=== PATIENT | female | born 1995 | race Caucasian/White ===

== ENCOUNTER → 2017-11-09 | Outpatient (CLI) | payer BC | LOC: PLD 11:19 → LAB SHORT 11:19 | DX: D48.5 Neoplasm of uncertain behavior of skin (principal) | CPT/HCPCS: 88305 ==

== ENCOUNTER 2025-01-06 01:57 | Inpatient (IN) | payer OTHER ==
[~2025-01-06] VITALS: Ht 170.2 cm; Wt 109.9 kg
[2025-01-06] VITALS (16 sets, daily range): BP systolic 75–128; BP diastolic 33–74
[2025-01-06] MEDS ORDERED: OXYTOCIN/RINGER'S LACTATE 500 ML IV PRN (02:10)
[2025-01-06] MEDS ORDERED: Methylergonovine Maleate 0.2MG / ML 1ML Amp IM PRN (02:10)
[2025-01-06] MEDS ORDERED: Oxytocin 10 Unit / ML Vial IM PRN (02:10)
[2025-01-06] MEDS ORDERED: Carboprost Tromethamine 250 MCG/ML 1ML Amp IM PRN ×2 (02:10→04:45)
[2025-01-06] MEDS ORDERED: Ondansetron HCl 2 MG / ML 2ML Vial IV PRN ×3 (02:10→04:45)
[2025-01-06] MEDS ORDERED: CeFAZolin Sodium 2,000 MG in NS 100 ML IV SCH (02:15)
[2025-01-06 02:25] LABS: BASOPHILS ABSOLUTE AUTO 0.06 K/mm3 (0.00-0.23); BASOPHILS PERCENT AUTO 0 % (0-2); EOSINOPHILS ABSOLUTE AUTO 0.01 K/mm3 (0.00-0.68); EOSINOPHILS PERCENT AUTO 0 % (0-6); Hematocrit 42.8 % (33.0-51.0); Hemoglobin 14.4 g/dL (11.5-16.0); IMMATURE GRAN ABSOLUTE AUTO 0.43 K/mm3 (0.00-0.10); IMMATURE GRAN PERCENT AUTO 2 % (0-1); LYMPHOCYTES ABSOLUTE AUTO 0.85 K/mm3 (0.84-5.20); LYMPHOCYTES PERCENT AUTO 3 % (21-46); MONOCYTES ABSOLUTE AUTO 1.16 K/mm3 (0.16-1.47); MONOCYTES PERCENT AUTO 4 % (4-13); Mean Corpuscular HGB Conc 33.6 g/dL (31.5-36.5); Mean Corpuscular Volume 96 fL (80-100); NEUTROPHILS ABSOLUTE AUTO 25.72 K/mm3 (1.96-9.15); NEUTROPHILS PERCENT AUTO 91 % (41-73); NRBC ABSOLUTE 0.00 K/mm3 (0.00-0.02); NRBC Auto 0.0 /100 WBC (0.0-0.2); Platelet Count 230 K/mm3 (150-400); RDW Coefficient Variation 13.6 % (11.7-14.2); RDW Standard Deviation 48.2 fL (35.1-46.3)
[2025-01-06] MEDS ORDERED: Terbutaline Sulfate 1MG / ML 1 ML Amp ONE (02:29)
[2025-01-06] MEDS ORDERED: Tranexamic Acid 100 ML IV SCH (02:30)
[2025-01-06] MEDS ORDERED: GENTAMICIN SULFATE IV ONE (02:35)
[2025-01-06] MEDS ORDERED: NS IV ONE (02:35)
[2025-01-06] MEDS ORDERED: Ampicillin Sod 2,000 MG in NS 100 ML IV SCH ×2 (03:00→09:00)
[2025-01-06] MEDS ORDERED: Clindamycin 900mg in D5W 50ML 50 ML IV SCH (03:00)
[2025-01-06] MEDS ORDERED: Citric Acid/Sodium Citrate 30 ML BTL ONE (03:06)
[2025-01-06] MEDS ORDERED: Metoclopramide HCl 5MG / ML 2ML Vial ONE (03:06)
[2025-01-06] MEDS ORDERED: Metoclopramide HCl 5MG / ML 2ML Vial IV ONE ×2 (03:10→03:15)
[2025-01-06] MEDS ORDERED: Citric Acid/Sodium Citrate 30 ML BTL PO ONE ×2 (03:10→03:20)
[2025-01-06] MEDS ORDERED: ePHEDrine Sulfate 50 MG/ML 1ML Injection ONE (03:39)
[2025-01-06] MEDS ORDERED: Oxytocin 10 Unit / ML Vial ONE (03:47)
--- NOTE | 2025-01-06 04:04 | NUR ---
01/06/25 0404 Eilane Koehler GIVEN BY ANESTHESIA AT 0347
[2025-01-06 04:17] LABS: PCO2 Cord - Arterial 50.7 mmHg (40-50); PO2 Cord - Arterial < 14.0 mmHg (16-20); pH Cord - Arterial 7.17 (7.28-7.35)
[2025-01-06] MEDS ORDERED: Ketorolac Tromethamine 30mg Vial ONE (04:17)
[2025-01-06 04:18] LABS: PCO2 Cord - Venous 41.9 mmHg (40-50); pH Umbilical Cord - Venous 7.24 (7.26-7.35)
[2025-01-06 04:19] LABS: PO2 Cord - Venous 20.4 mmHg (28-32)
[2025-01-06] MEDS ORDERED: OXYTOCIN/RINGER'S LACTATE 500 ML IV SCH (04:35)
[2025-01-06] MEDS ORDERED: Magnesium Hydroxide Conc 10 ML UDC PO PRN (04:35)
[2025-01-06] MEDS ORDERED: FentaNYL Citrate 50 MCG/ML 2 ML Injection IV PRN ×3 (04:40→04:50)
[2025-01-06] MEDS ORDERED: Albuterol 2.5 MG/3 ML VIAL INH PRN (04:45)
[2025-01-06] MEDS ORDERED: HYDROmorphone HCl/Pf 1MG SYR IV PRN (04:45)
[2025-01-06] MEDS ORDERED: Prochlorperazine Edisylate 10 mg Vial IV PRN (04:50)
[2025-01-06] MEDS ORDERED: Dexamethasone Sodium Phosphate 4 MG/ML 5ML VIAL IV PRN (04:50)
[2025-01-06] MEDS ORDERED: Ketorolac Tromethamine 30mg Vial IV SCH (05:00)
[2025-01-06] MEDS ORDERED: PRENATAL TABLE1 EAC2 (05:24)
[2025-01-06] MEDS ORDERED: Prenatal Vit/FE Fumarate/FA 1 Tab PO SCH (09:00)
[2025-01-06 10:11] LABS: BASOPHILS ABSOLUTE AUTO 0.05 K/mm3 (0.00-0.23); BASOPHILS PERCENT AUTO 0 % (0-2); EOSINOPHILS ABSOLUTE AUTO 0.01 K/mm3 (0.00-0.68); EOSINOPHILS PERCENT AUTO 0 % (0-6); Hematocrit 34.0 % (33.0-51.0); Hemoglobin 11.6 g/dL (11.5-16.0); IMMATURE GRAN ABSOLUTE AUTO 0.22 K/mm3 (0.00-0.10); IMMATURE GRAN PERCENT AUTO 1 % (0-1); LYMPHOCYTES ABSOLUTE AUTO 1.10 K/mm3 (0.84-5.20); LYMPHOCYTES PERCENT AUTO 4 % (21-46); MONOCYTES ABSOLUTE AUTO 1.54 K/mm3 (0.16-1.47); MONOCYTES PERCENT AUTO 5 % (4-13); Mean Corpuscular HGB Conc 34.1 g/dL (31.5-36.5); Mean Corpuscular Volume 95 fL (80-100); NEUTROPHILS ABSOLUTE AUTO 25.99 K/mm3 (1.96-9.15); NEUTROPHILS PERCENT AUTO 90 % (41-73); NRBC ABSOLUTE 0.00 K/mm3 (0.00-0.02); NRBC Auto 0.0 /100 WBC (0.0-0.2); Platelet Count 210 K/mm3 (150-400); RDW Coefficient Variation 13.6 % (11.7-14.2); RDW Standard Deviation 47.8 fL (35.1-46.3)
[2025-01-06] MEDS ORDERED: Methylergonovine Maleate 0.2MG / ML 1ML Amp IV ONE (12:05)
[2025-01-07] VITALS (7 sets, daily range): BP systolic 105–123; BP diastolic 55–75
--- NOTE | 2025-01-07 06:30 | NUR ---
Assumed care at change of shift. Mother in bed at this time with multiple visitors in room. Discussed plan of care for the shift including antibiotics throughout the night, pain control and frequency for . Patient agrees with plan of care. Patient became tearful around 0530 r/t pain and drastic change in plans for . Patient expressed concerns about going home while being in so much pain. Education provided on medication often offered at discharge and emotional support provided.
[2025-01-07] MEDS ORDERED: Ketorolac Tromethamine 30mg Vial IV ONE (20:20)
[2025-01-08 02:49] VITALS: BP 110/64
[2025-01-08 07:36] VITALS: BP 122/64
[2025-01-08 13:07] VITALS: BP 117/63
== END 2025-01-08 18:50 | disposition home or self-care (01) | DRG 786 ==
LOC: OBS 01:57 → BC 02:12
PROVIDERS: ADMIT Obstetrics & Gynecology
PROC: 3E03329 Introduction of Other Anti-infective into Peripheral Vein, Percutaneous Approach (ICD-10-PCS; 2025-01-06)
PROC: 10D00Z1 Extraction of Products of Conception, Low, Open Approach (ICD-10-PCS; principal; 2025-01-06 02:45)
DX: O48.0 Post-term pregnancy (principal); O41.1230 Chorioamnionitis, third trimester, not applicable or unspecified; Z3A.41 41 weeks gestation of pregnancy; Z37.0 Single live birth; O76 Abnormality in fetal heart rate and rhythm complicating labor and delivery; O77.0 Labor and delivery complicated by meconium in amniotic fluid
CPT/HCPCS: 36415; 82803; 85025; 86850; 86900; 86901; A9270; J0290; J1580; J1885; J2210; J2590; J3105; J7120